=== PATIENT | female | born 1945 | race Caucasian/White ===

== ENCOUNTER 2019-01-22 15:18 | Emergency (ER) | payer MEDICARE ==
[2019-01-22] MEDS ORDERED: Bacitracin Oint 1 GM U/D Packet TOP ONE (16:03)
[2019-01-22] MEDS ORDERED: Doxycycline 100 MG Cap PO ONE (16:03)
--- NOTE | 2019-01-22 16:07 | EDM.PDOC ---
ED HPI GENERAL MEDICAL PROBLEM - General Chief Complaint: Bite:Animal, Insect Stated Complaint: DEER TICK Time Seen by Provider: 01/22/19 16:03 Source of Information: Reports: Patient, Family History Limitations: Reports: No Limitations - History of Present Illness INITIAL COMMENTS - FREE TEXT/NARRATIVE: 73-year-old female noticed a tick on her left anterior thigh this morning. A small amount of red inflammation around the bite, they covered it with dish soap but it won't back out. They did not attempt to remove it. She is otherwise healthy. Location: Reports: Lower Extremity, Left Associated Symptoms: Reports: No Other Symptoms Left Thigh Pain Score (Numeric/FACES): 5 - Related Data Allergies Allergy/AdvReac Type Severity Reaction Status Date / Time No Known Allergies Allergy Verified 01/22/19 15:46 Home Meds: Home Meds Levothyroxine 75 mcg PO ACBREAKFAST 01/22/19 [History] Levothyroxine [Synthroid] 50 mcg PO ACBREAKFAST 01/22/19 [History] Past Medical History - Past Health History Medical/Surgical History: Denies Medical/Surgical History Endocrine/Metabolic History: Reports: Hypothyroidism - Infectious Disease History Infectious Disease History: Reports: Chicken Pox, Measles, Mumps Social & Family History - Tobacco Use Smoking Status *Q: Never Smoker - Caffeine Use Caffeine Use: Reports: Coffee - Recreational Drug Use Recreational Drug Use: No ED ROS GENERAL - Review of Systems Review Of Systems: See Below Constitutional: Denies: Fever Respiratory: Denies: Shortness of Breath Cardiovascular: Denies: Chest Pain GI/Abdominal: Denies: Nausea, Vomiting Skin: Reports: Erythema ED EXAM, ANIMAL BITE - Physical Exam Exam: See Below Exam Limited By: No Limitations General Appearance: Alert, No Apparent Distress Respiratory/Chest: No Respiratory Distress Extremities: Other (patient is a small tick embedded into the anterior aspect of the left side. There is a small amount of erythema around the bite.) Course - Vital Signs Last Recorded V/S: Last Vital Signs Temp 97.2 F 01/22/19 15:43 Pulse 71 01/22/19 15:43 Resp 16 01/22/19 15:43 BP 172/90 H 01/22/19 15:43 Pulse Ox 95 01/22/19 15:43 - Orders/Labs/Meds Meds: Medications Discontinued Medications Generic Name Dose Route Start Last Admin Trade Name Freq PRN Reason Stop Dose Admin Bacitracin 1 dose 01/22/19 16:03 01/22/19 16:09 Bacitracin Oint 1 Gm TOP 01/22/19 16:04 1 dose ONETIME ONE Administration Doxycycline Hyclate 200 mg 01/22/19 16:03 01/22/19 16:09 Vibramycin PO 01/22/19 16:04 200 mg ONETIME ONE Administration - Re-Assessments/Exams Free Text/Narrative Re-Assessment/Exam: 01/22/19 16:05 physical pointed tweezers, the tick was carefully removed with countertraction at a 90 angle. A very tiny bit of residual material was left which is abraded with the end of the tweezers. Bacitracin and a Band-Aid was applied and the patient was given 200 mg of oral doxycycline. She will keep wound clean and covered while healing and return if symptoms develop. Departure - Departure Time of Disposition: 16:16 Disposition: Home, Self-Care 01 Condition: Good Clinical Impression: Tick bite of left thigh Qualifiers: Encounter type: initial encounter Qualified Code(s): S70.362A - Insect bite ( nonvenomous), left thigh, initial encounter - Discharge Information Instructions: Tick Bite Information, Adult, [id number] Referrals: PCP,None [Primary Care Provider] - Forms: ED Department Discharge Care Plan Goals: Keep wound covered and clean while healing, and activity and diet as tolerated. Return if symptoms develop such as fever, increased rash or joint pains.
== END 2019-01-22 16:17 | disposition home or self-care (01) ==
LOC: JP.ED 15:18
DX: S70.362A Insect bite (nonvenomous), left thigh, initial encounter (principal); E03.9 Hypothyroidism, unspecified; Z79.899 Other long term (current) drug therapy; W57.XXXA Bitten or stung by nonvenomous insect and other nonvenomous arthropods, initial encounter
CPT/HCPCS: 99282; A9270